=== PATIENT | female | born 1975 | race Caucasian/White ===

== ENCOUNTER 2022-04-10 08:41 | Outpatient (CLI) | payer OTHER, SELFPAY ==
[2022-04-10 15:20] LABS: Basophils Absolute Auto 0.05 K/uL (0.00-0.30); Basophils Percent Auto 0.7 % (0.0-3.0); Eosinophils Absolute Auto 0.13 K/uL (0.00-0.50); Eosinophils Percent Auto 1.9 % (0.0-7.0); Hematocrit 31.4 % (33.0-51.0); Immature Granulocytes Abs Auto 0.04 K/uL (0.00-0.30); Lymphocytes Percent Auto 16.8 % (20-44); Mean Corpuscular HGB Conc 32 gm/dL (32-36); Mean Corpuscular Hemoglobin 25 pg (26-34); Mean Corpuscular Volume 78 fL (80-100); Monocytes Percent Auto 5.9 % (0.0-11.0); Neutrophils Percent Auto 74.1 % (42.0-72.0); Platelet Count* 109 K/uL (140-440); RDW Coefficient of Variation % 16.3 % (11.5-15.5); Red Blood Count 4.05 m/uL (4.00-5.20); White Blood Count* 6.97 K/uL (4.50-11.00)
[2022-04-10 15:21] LABS: Chloride* 104 mmol/L (96-114); Potassium* 3.8 mmol/L (3.6-5.1); Sodium* 138 mmol/L (135-149)
[2022-04-10 15:24] LABS: Blood Urea Nitrogen* 12 mg/dL (5-24); Carbon Dioxide* 20 mmol/L (20-32); Creatinine* 0.7 mg/dL (0.5-1.5); Estimated Glomerular Filt Rate 108 ml/min; Glucose* 106 mg/dL (60-115); Slide Review Reflex No
[2022-04-10 15:25] LABS: Calcium* 9.4 mg/dL (8.4-10.6)
== END 2022-04-10 08:42 | disposition home or self-care (01) ==
LOC: KYNREF 08:42
PROVIDERS: PCP Nurse Practitioner Family; Visit Provider Nurse Practitioner Family
DX: Z01.818 Encounter for other preprocedural examination (principal)
CPT/HCPCS: 36415; 80048; 85025

== ENCOUNTER 2022-04-21 09:17 | Inpatient (IN) | payer OTHER, SELFPAY ==
[2022-04-21] VITALS (20 sets, daily range): BP systolic 102–192; BP diastolic 47–96; PULSE 59–100; RESP 14–22; TEMP 36.2–36.7; O2SAT 93–100; BMI 40.9
[2022-04-21] MEDS: LACTATED RINGERS 1000 ML 1,000 ML 100 ML IV ×2 (09:30→13:17)
[2022-04-21 10:10] LABS: Ur HCG Qualitative* Negative (Negative)
[2022-04-21 10:36] LABS: Creatinine* 0.8 mg/dL (0.5-1.5); Est. Creatinine Clearance* 79.07; Estimated Glomerular Filt Rate 92 ml/min
[2022-04-21] MEDS: SODIUM CHLORIDE 0.9 % (FLUSH) 10 ML SYRINGE IVF (10:44)
[2022-04-21] MEDS: CEFAZOLIN 1 GM inj 3 GM IVP (11:40)
--- NOTE | 2022-04-21 11:56 | P.NB_ITS ---
Nerve Block Nerve Block Time Seen by Provider: 11:50 Date Seen: 04/21/22 Type of block requested by surgeon for post-operative analgesia: TAP Side: bilateral Time out performed: Yes Verification of patient name: Yes Verification of date of : Yes Site marking: site marked Name of person performing procedure: Zelalem Alvarez Continuous monitoring Was continuous monitoring of O2 sat, B/P, alarm security or surveillance monitor, recorded every 15 minutes?: Yes Procedure Checklist: sterile prep, needles and gloves Ultrasound guided. Images saved: Yes Medications given in 5ml increments after negative aspiration: Marcaine %: 0.25 mL: 50 Needle gauge: 20 and Exparel mL: 10 Needle gauge: 20 Patient tolerated procedure well: Yes Additional comments: Injected in 5ml increments after negative aspiration Block Charges Block Charge (with Pro Fee): TAP Bilateral Use of Ultrasound Machine for Block: Yes- US Guidance/pain block
--- NOTE | 2022-04-21 13:45 | PM.PROC ---
Procedure Note Time Seen by Provider: 13:45 Date Seen: 04/21/22 Date of procedure: 04/21/22 Will [facility] bill your pro fee for this procedure?: Yes Procedure: certified medical technician assistant op note: Preoperative diagnosis: 46-year-old with menorrhagia and uterine fibroids Postoperative diagnosis: Same Procedure: Total abdominal hysterectomy, bilateral salpingectomy Operative note: I was asked to assist Dr. Johana Murphy with the patient's surgery. I aided in dissection, visualization, performing the hysterectomy and obtaining hemostasis. Please see Dr. Murphy note for complete details. The uterus weighed 576 g in the operating room. Surgeon: Nadia Meng MD Pathology: specimen obtained, sent to pathology Condition: stable Disposition: PACU
--- NOTE | 2022-04-21 13:52 | W.PM.GYNPROC ---
Procedure Note Date Seen: 04/21/22 Procedure Details: PREOPERATIVE DIAGNOSIS: 1. Menorrhagia with anemia. 2. Large myomatous uterus. POSTOPERATIVE DIAGNOSIS: 1. Menorrhagia with anemia. 2. Large myomatous uterus. NAME OF PROCEDURE: Total abdominal hysterectomy. Bilateral salpingectomies. SURGEON: Katherine RANGELAND MANAGEMENT SPECIALIST: [employer]. ANESTHESIA: General endotracheal. COMPLICATIONS: None. ESTIMATED BLOOD LOSS: 100 cc. DRAINS: Bui to gravity. Urine Output: 300 cc. Fluids: 1300 cc crystalloid. FINDINGS: Enlarged myomatous uterus, approximately 16-week size, 576 g. Normal-appearing fallopian tubes and ovaries bilaterally. PROCEDURE: After obtaining informed consent, the patient was taken to the operating room where general anesthesia was obtained without difficulty. She was prepared and draped in the normal sterile fashion in the dorsal supine position. A Bui catheter was inserted sterilely into the bladder. A Pfannenstiel skin incision was made with a scalpel. This incision was carried down to the underlying layer of fascia with the Bovie. The fascia was incised in the midline and the incision extended laterally. The superior and inferior aspects of the fascial incision were grasped with Chris clamps and the underlying rectus muscles dissected off sharply. The rectus muscles were in the midline. The underlying peritoneum was identified and entered bluntly. The peritoneal incision was extended superiorly and inferiorly with good visualization of the bladder. The patient was placed in some mild Trendelenburg positioning. The bowels were packed cephalad using a large moistened laparotomy sponge. The Ariel O retractor was placed in the incision. This provided excellent visualization of the pelvis. The pelvis was inspected with the findings noted above. Tony clamps were placed at the cornua bilaterally for traction. Both ureters were identified along their courses within the pelvic sidewall. The left right round ligament was doubly clamped with Chris clamps, transected, and suture ligated with 0 Vicryl. The anterior leaf of the broad ligament was opened to the midline from the left side. The left fallopian tube was elevated with Denver clamps. Mogran clamps were placed across the tubal attachments, which were then transected and suture ligated with 0 Vicryl. A Morgan clamp was placed across the left fallopian tube at the cornua and the tube was excised and the pedicle suture ligated with 0 Vicryl. The left ovarian ligament was then isolated, clamped across with 2 Morgan clamps, transected, and doubly suture ligated with 0 Vicryl. Hemostasis was observed. The uterine vessels were skeletonized on the left side. The vessels were clamped across with a Morgan and a straight clamp, transected, and suture ligated. Excellent hemostasis was obtained. Attention was then turned to the right side. The right round ligament was clamped with 2 Chris clamps, transected, and suture ligated with 0 Vicryl. The anterior leaf of the broad ligament was opened from the right side to the midline. The bladder was further pushed caudally with a sponge stick. The right fallopian tube was clamped across its attachments serially, transected, and suture ligated with 0 Vicryl until the tube was transected at the cornua. The right ovarian ligament was clamped with 2 Morgan clamps, transected, and doubly suture ligated with 0 Vicryl. Hemostasis was visualized. The right uterine vessels were skeletonized and then clamped across with Morgan clamps, transected, and suture ligated. Excellent hemostasis was obtained. The body of the uterus was then transected from the cervix at the level of the uterine artery pedicles using electrocautery And the uterus was passed off the field. The cervical stump was grasped with 2 long Chris clamps. The remaining cardinal and uterosacral ligament attachments on both sides were clamped with straight Morgan clamps adjacent to the lower uterine segment and cervix, transected and suture ligated with 0 Vicryl. Excellent hemostasis was obtained. Two Morgan clamps were placed across the vaginal cuff angles. The cervix was then transected and passed off the field. The vaginal cuff angles were fixed with Morgan stitches of 0 Vicryl. The intervening vaginal cuff was closed with [id number] sutures of 0 Vicryl. The abdomen and pelvis were then copiously irrigated. Small bleeding vessels were isolated with DeBakey clamps and cauterized for hemostasis. Mady was placed over raw tissue edges for additional hemostasis. All laparotomy sponges and instruments were then removed. The subfascial tissues were carefully inspected and hemostasis assured. The fascia was reapproximated in a running fashion with a looped 0 Maxon suture. The subcutaneous tissues were copiously irrigated and hemostasis assured. The subcutaneous adipose layer was reapproximated with interrupted sutures of 3-0 plain gut in 2 layers as it was about 10 cm in thickness. The skin was closed in a subcuticular fashion with 4-0 Vicryl. A silver Mepilex dressing was applied. The patient tolerated the procedure well. Sponge, lap, needle, instrument counts were reported as correct x2. The patient was taken to recovery room awake and in stable condition. She received 2 g of IV Ancef preoperatively. The uterus with detached cervix was weighed at the conclusion of the procedure, combined weight was 576 g. PATHOLOGY SPECIMEN(S): Uterus with detached cervix, and detached bilateral fallopian tubes.
--- NOTE | 2022-04-21 14:11 | W.ANESCHARGE ---
Anesthesia Charges Start Date/Time Anesthesia Start Date: 04/21/22 Anesthesia Start Time: 11:36 Stop Date/Time Anesthesia Stop Date: 04/21/22 Anesthesia Stop Time: 14:10 Summary Emergency: No
[2022-04-21] MEDS: HYDROmorphone 0.5 mg/0.5 ml inj IVP ×2 (14:54→15:41)
[2022-04-21] MEDS: ACETAMINOPHEN 325 MG TABLET 650 MG PO ×2 (17:58→23:55)
[2022-04-21] MEDS: OXYCODONE 5 MG TABLET PO ×2 (17:59→22:11)
[2022-04-21] MEDS: KETOROLAC 30 MG/ML inj IVP (18:55)
[2022-04-21] MEDS: LACTATED RINGERS 1000 ML 1,000 ML 125 ML IV (21:00)
[2022-04-21] MEDS: DOCUSATE SODIUM 100 MG CAPSULE PO (21:22)
[2022-04-22] VITALS (8 sets, daily range): BP systolic 111–153; BP diastolic 67–93; PULSE 74–88; RESP 16; TEMP 36.6–37.1; O2SAT 94–98
[2022-04-22] MEDS: MORPHINE 2 MG/ML inj IVP (00:23)
[2022-04-22] MEDS: KETOROLAC 30 MG/ML inj IVP ×4 (00:56→19:19)
[2022-04-22] MEDS: OXYCODONE 5 MG TABLET PO ×5 (02:12→22:27)
[2022-04-22 05:30] LABS: Hemoglobin* 10.1 gm/dL (12.0-16.0)
[2022-04-22 05:47] LABS: Creatinine* 0.7 mg/dL (0.5-1.5); Est. Creatinine Clearance* 90.36; Estimated Glomerular Filt Rate 108 ml/min
[2022-04-22] MEDS: ACETAMINOPHEN 325 MG TABLET 650 MG PO ×4 (05:58→22:27)
--- NOTE | 2022-04-22 07:23 | PC.NURSE ---
Shift note [id number]: Patient was alert and oriented x4. BP's elevated throughout shift, last BP WNL. Patient required 1L of O2 to maintain SpO2 greater than 92% when sleeping. She received oxycodone, tylenol and morphine in addition to scheduled toradol to manage pain. Current pain is 1/. IV saline locked as patient tolerating PO intake. Bui pulled at 0700. Patient ambulated x1 with SBA and tolerated well. Patient was pleasant and cooperative with cares.
--- NOTE | 2022-04-22 08:38 | PM.GYNPNPO ---
CUTTING DEPARTMENT SUPERVISOR - A/P Assessment and plan (1) Status post total abdominal hysterectomy: Status: Acute Assessment and Plan: Assessment: 46-year-old postoperative day#1 From a total abdominal hysterectomy and bilateral salpingectomy. Plan: 1. Continue routine postop care. 2. Planning discharge home tomorrow Postoperative Procedures: Procedures Operation Date: 04/21/22 10:55 Actual Procedure Side Surgeon p Total Abdominal Hysterectomy, bilateral Salpingectomy Johana Murphy MD Time Spent With Patient Time: Total time spent is greater than 50% in coordination of care (as documented) at patient's floor/unit and/or counseling patient: Time with patient: less than 15 minutes CUTTING DEPARTMENT SUPERVISOR- PN:Subj Post-Op Subjective Time Seen by Provider: 08:38 Date Seen: 04/22/22 Post Operative Details: Subjective: Aurelia is a 46-year-old 2 para 2 who is postop day 1 from a total abdominal hysterectomy and bilateral salpingectomy for symptomatic uterine fibroids. She is doing well today. She states her pain is well controlled but was severe yesterday afternoon. She is tolerating regular diet. She denies nausea/vomiting. She has not urinated as her Bui was removed this morning. Has had adequate urine output. She has been ambulating. Planning on discharge home tomorrow. CUTTING DEPARTMENT SUPERVISOR-PN: Obj Exam Physical Exam: Vital signs: Temp Pulse Resp BP Pulse Ox O2 Del Method O2 Flow Rate 97.8 F 88 16 129/93 H 98 1 04/22/22 07:30 04/22/22 04:06 04/22/22 07:30 04/22/22 07:30 04/22/22 04:06 04/22/22 04:06 04/22/22 00:52 Narrative: General: Pleasant, , well groomed woman in no acute distress. Vital signs: Per electronic medical record Heart: Regular rate and rhythm without gallop, rub or murmur. Chest: Clear to auscultation bilaterally. Abdomen: Soft, nontender, mildly distended. No CVA or flank tenderness. Incision: Silver-containing dressing in place and dry. Extremities: No pain or edema. Urinary Catheter Management: 2-way Urethral: Cath placed during this visit: yes Urethral indwelling: No Insertion date: 04/21/22 Insertion time: 12:10 CUTTING DEPARTMENT SUPERVISOR - PN: Obj Data Labs Labs: Laboratory Results - last 24 hr 08/30/22 08/30/22 08/30/22 09:30 10:14 10:14 Hgb 11.0 L Creatinine 0.8 Estimated Creat Clear 79.07 Estimated GFR 92 Urine HCG, Qual Negative Blood Type Antibody Screen 04/21/22 04/22/22 04/22/22 10:14 05:20 05:20 Hgb 10.1 L Creatinine 0.7 Estimated Creat Clear 90.36 Estimated GFR 108 Urine HCG, Qual Blood Type O Positive Antibody Screen NEGATIVE
[2022-04-22] MEDS: hydroCHLOROthiazide 25 MG TABLET PO (09:34)
[2022-04-22] MEDS: LOSARTAN POTASSIUM 50 MG TABLET 25 MG PO (09:35)
--- NOTE | 2022-04-22 10:47 | PC.NURSE ---
Pt ambulated in hallway at 0900 and 1030 and tolerated well.
[2022-04-22] MEDS: SIMETHICONE 80 MG TAB.CHEW 160 MG PO (18:04)
[2022-04-22] MEDS: DOCUSATE SODIUM 100 MG CAPSULE PO (18:04)
[2022-04-23 00:55] VITALS: BP 105/67; PULSE 78; RESP 16; TEMP 36.9; O2SAT 98
[2022-04-23] MEDS: IBUPROFEN 600 MG TABLET PO ×2 (00:55→07:58)
[2022-04-23 03:56] VITALS: BP 123/78; PULSE 74; RESP 16; TEMP 36.9; O2SAT 98
[2022-04-23] MEDS: OXYCODONE 5 MG TABLET PO (03:57)
[2022-04-23] MEDS: ACETAMINOPHEN 325 MG TABLET 650 MG PO (03:57)
[2022-04-23] MEDS: SIMETHICONE 80 MG TAB.CHEW 160 MG PO (04:01)
[2022-04-23 08:00] VITALS: BP 130/82; PULSE 74; PULSE 79; RESP 18; TEMP 36.8; O2SAT 96
--- NOTE | 2022-04-23 09:00 | P.GYNPN_ITS ---
MAGNETIC TAPE TYPEWRITER OPERATOR - A/P Assessment and plan (1) Status post total abdominal hysterectomy: Status: Acute Plan We reviewed activity restrictions, home going medications, and follow-up instructions. Postoperative Procedures: Procedures Operation Date: 04/21/22 10:55 Actual Procedure Side Surgeon p Total Abdominal Hysterectomy, bilateral Salpingectomy Johana Murphy MD Postoperative day: 2 Postoperative status: doing well Postoperative plan: discharge Time Spent With Patient Time: Total time spent is greater than 50% in coordination of care (as documented) at patient's floor/unit and/or counseling patient: Time with patient: 25 - 35 minutes MAGNETIC TAPE TYPEWRITER OPERATOR- PN:Subj Post-Op Subjective Date Seen: 04/23/22 Post Operative Details: Post-operative day number 2: status post total abdominal hysterectomy with bilateral salpingectomies for large myomatous uterus. Subjective: patient has no complaints, pain is well controlled, ambulating well, voiding without difficulty, patient is tolerating oral intake and passing flatus MAGNETIC TAPE TYPEWRITER OPERATOR-PN: Obj Exam Physical Exam: Vital signs: Temp Pulse Resp BP Pulse Ox O2 Del Method O2 Flow Rate 98.2 F 79 18 130/82 96 1 04/23/22 08:00 04/23/22 08:00 04/23/22 08:00 04/23/22 08:00 04/23/22 08:00 04/23/22 08:00 04/23/22 03:56 Narrative: VITAL SIGNS: As noted above. GENERAL APPEARANCE: Alert, cooperative white female in no acute distress. MOOD & AFFECT: Normal. HEART: Regular rate and rhythm without murmurs. LUNGS: Lungs are clear to auscultation bilaterally. No crackles, wheezes, or rhonchi. ABDOMEN: Soft, non-distended and nontender. Silver Mepilex dressing covering incision, dry. : Deferred EXTREMITIES: Nonedematous. Well perfused. Nontender. Urinary Catheter Management: 2-way Urethral: Cath placed during this visit: yes Urethral indwelling: No Insertion date: 04/21/22 Insertion time: 12:10
[2022-04-23] MEDS: LOSARTAN POTASSIUM 50 MG TABLET 25 MG PO (09:41)
[2022-04-23] MEDS: hydroCHLOROthiazide 25 MG TABLET PO (09:41)
== END 2022-04-23 10:45 | disposition home or self-care (01) | DRG 742 ==
PROVIDERS: Admitting Provider Obstetrics & Gynecology; PCP Nurse Practitioner Family; Visit Provider Obstetrics & Gynecology
PROC: 0UT94ZZ Resection of Uterus, Percutaneous Endoscopic Approach (ICD-10-PCS; CPT 52000; principal; 2022-04-21 10:45)
DX: N92.0 Excessive and frequent menstruation with regular cycle (principal); Z68.41 Body mass index [BMI] 40.0-44.9, adult; D25.9 Leiomyoma of uterus, unspecified; D50.0 Iron deficiency anemia secondary to blood loss (chronic); I10 Essential (primary) hypertension; E66.9 Obesity, unspecified; F90.9 Attention-deficit hyperactivity disorder, unspecified type; F41.9 Anxiety disorder, unspecified; Z86.32 Personal history of gestational diabetes
CPT/HCPCS: 00840; 36415; 64488; 76942; 81025; 82565; 85018; 86850; 86900; 86901; 88307; A9270; C9290; J0330; J0690; J1170; J1885; J2270; J2704; J2710; J3010; J3490; J7120

== ENCOUNTER 2022-04-30 13:36 | Outpatient (CLI) | payer OTHER, SELFPAY | END 2022-04-30 13:37 | disposition home or self-care (01) | LOC: NFLDREF 13:38 | PROVIDERS: PCP Nurse Practitioner Family; Visit Provider Obstetrics & Gynecology | DX: R39.89 Other symptoms and signs involving the genitourinary system (principal) | CPT/HCPCS: 87086 ==

== ENCOUNTER 2023-10-05 08:20 | Outpatient (CLI) | payer OTHER, SELFPAY | END 2023-10-05 08:21 | disposition home or self-care (01) | PROVIDERS: PCP Nurse Practitioner Family; Visit Provider Nurse Practitioner Family | DX: I10 Essential (primary) hypertension (principal); Z13.220 Encounter for screening for lipoid disorders; Z13.0 Encounter for screening for diseases of the blood and blood-forming organs and certain disorders involving the immune mechanism | CPT/HCPCS: 80053; 80061; 83001; 85025 ==

== ENCOUNTER 2023-12-29 08:51 | Outpatient (CLI) | payer OTHER, SELFPAY ==
--- NOTE | 2023-12-29 09:15 | MM_ITS ---
Patient: MARY BETH SYED Facility:?[facility] Patient ID:?[id number] Site Patient ID:?[id number] Site :?[id number] Study:?XRay-Breast Bilateral 3D W/CAD-12/29/2023 9:19:37 AM Ordering Physician:Latia Reza Final Report: BILATERAL SCREENING MAMMOGRAM WITH COMPUTER-AIDED DETECTION AND TOMOSYNTHESIS TECHNIQUE: CC and MLO views were obtained. These mammographic images have been obtained using full-field digital technique. These mammographic images were interpreted with the benefit of computer-aided detection. Breast Tomosynthesis was used in this interpretation. COMPARISON FILM: 08/31/19, 11/26/17, 09/24/16. FINDINGS: There are scattered areas of fibroglandular density. IMPRESSION: There is no radiographic evidence for malignancy. ASSESSMENT: BI-RADS Category 1: Negative RECOMMENDATION: Routine screening mammogram in 1 year. A lay language report of this examination will be provided to the patient. Ulises Valle M.D. Diagnostic Radiologist [email or web address] [place]/sp R& Transcribed: 3:16 p.m. SP/Dictated by: Ulises Valle MD @ 01/03/2024 1:03:00 PM Signed by:?Ulises Valle MD @01/03/2024 4:00:44 PM (Electronic Signature)
== END 2023-12-29 08:52 | disposition home or self-care (01) ==
LOC: MAMMO 08:53
PROVIDERS: PCP Nurse Practitioner Family; Visit Provider Nurse Practitioner Family
DX: Z12.31 Encounter for screening mammogram for malignant neoplasm of breast (principal)
CPT/HCPCS: 77063; 77067

== ENCOUNTER 2024-11-24 08:18 | Outpatient (CLI) | payer OTHER, SELFPAY | END 2024-11-24 08:19 | disposition home or self-care (01) | PROVIDERS: PCP Nurse Practitioner Family; Visit Provider Nurse Practitioner Family | DX: E78.5 Hyperlipidemia, unspecified (principal); I10 Essential (primary) hypertension; E66.9 Obesity, unspecified; F41.9 Anxiety disorder, unspecified; R23.2 Flushing; Z13.0 Encounter for screening for diseases of the blood and blood-forming organs and certain disorders involving the immune mechanism | CPT/HCPCS: 80053; 80061; 83001; 85025 ==

== ENCOUNTER 2025-03-01 09:51 | Outpatient (CLI) | payer OTHER, SELFPAY ==
--- NOTE | 2025-03-01 10:15 | CRLHL7_ITS ---
For Patients: As a result of the Century Cures Act, medical imaging exams and procedure reports are released immediately into your electronic medical record. You may view this report before your referring provider. If you have questions, please contact your health care provider. INDICATION: BILATERAL SCREENING MAMMOGRAM, ASYMPTOMATIC 49 Y/O FEAMLE COMPARISON: 12/29/2023, 01/08/2022, 08/31/2019 TECHNIQUE: Digital mammogram in CC and MLO projections including computer-aided detection (CAD) and tomosynthesis. BREAST COMPOSITION: There are scattered areas of fibroglandular density. FINDINGS: No suspicious findings. ASSESSMENT: BI-RADS 2 Benign RECOMMENDATION: Annual screening mammogram. A lay language report of this examination will be provided to the patient. Dictated by: Ulises Valle MD @ 03/01/2025 10:58:14 (Electronically Signed)
== END 2025-03-01 09:52 | disposition home or self-care (01) ==
LOC: MAMMO 09:52
PROVIDERS: PCP Nurse Practitioner Family; Visit Provider Nurse Practitioner Family
DX: Z12.31 Encounter for screening mammogram for malignant neoplasm of breast (principal)
CPT/HCPCS: 77063; 77067